=== PATIENT | male | born 1975 ===

== ENCOUNTER 2016-06-05 18:54 | Observation (INO) ==
--- NOTE | 2016-06-05 19:04 | Emergency Department Note ---
Disposition Clinical Impression: Alcoholic intoxication Qualifiers: Complication of substance-induced condition: uncomplicated Qualified Code(s): F10.120 - Alcohol abuse with intoxication, uncomplicated Disposition: Admitted As Inpatient Condition: Good Time of Disposition: 22:59 Altered Mental Status HPI - General Stated Complaint: Intoxication Time Seen by Provider: 06/05/16 19:00 Source: EMS Mode of arrival: EMS Limitations: altered mental status (ACUTE INTOXICATION) Nursing Notes Reviewed: Yes Vital Signs Reviewed: Yes - History of Present Illness HPI Narrative: Mr. Candelario Masters is a male was brought in via EMS for acute intoxication. He was reportedly picked up from [employer] restaurant passed out since 1600 today. EMS reports that no employee restaurants recognize him or know him. Reportedly has been drinking alcohol all day. EMS found him on the ground. GCS 12 [id number]. He is protecting his airway. Pupils are reactive but sluggish. No obvious signs of trauma. - Related Data Home Medications Medication Instructions Recorded Confirmed Unable To Obtain [Unable to Obtain] 06/05/16 06/05/16 Allergies Allergy/AdvReac Type Severity Reaction Status Date / Time Unable to Assess Allergy Unverified 06/05/16 19:27 Limitations: ROS unobtainable due to patients medical condition (acute intoxication) Past Medical History - Past Medical History Source: unable to obtain (no ID, Candelario Masters) Physical Exam - General Limitations: altered mental status General appearance: appears intoxicated, obtunded - Head Head exam: atraumatic, normocephalic, normal inspection - Eye Eye exam: Present: normal appearance, PERRL (sluggish), EOMI, other (ptergium left eye medial) - ENT ENT exam: normal exam, normal oropharynx, mucous membranes moist - Neck Neck exam: Present: normal inspection, full ROM, trachea midline - Chest Chest inspection: Present: normal inspection, symmetric chest wall rise - Respiratory Respiratory exam: Present: normal lung sounds bilaterally. Absent: respiratory distress, wheezes - Cardiovascular Cardiovascular exam: Present: regular rate, normal rhythm, normal heart sounds - Abdominal Exam Abdominal exam: Present: soft, Non-Tender, normal bowel sounds. Absent: tenderness, distention, guarding, rebound, rigidity - Expanded Neurological Exam Coma Scale Eye Opening: To Voice Coma Scale Motor Response: Localizes to Pain Coma Scale Verbal Response: Confused (some words sound like malay) Coma Scale Total: 12 - Skin Skin exam: Present: warm, dry, intact, normal color Course Course Narrative: Unidentified male presents via EMS for acute intoxication. He supposedly has been passed out since 1600 this afternoon likely from alcohol intoxication. He has no signs of obvious trauma. He is protecting his airway. GCS 12. Opens eyes to vocal command but does not move extremities spontaneous. Moves all 4 extremities. He is very somnolent, will awaken and then quickly doze off. Lungs are clear bilaterally. Heart is regular rate and rhythm. Eyes are equal round and reactive to light however are sluggish. Due to his intoxication will get a CT head and cervical spine along with basic labs, APAP, ASA, and EtOH. Plan to observe. - Reevaluation(s) Reevaluation #1: CT imaging does not reveal any acute fracture or intracranial abnormality. Chest x-ray does not reveal any infectious process. Bloodwork confirms acute alcoholic intoxication. Blood alcohol 445. He will likely need observation until he is sober. Toxic panel is negative for salicylates or acetaminophen. Urine is negative for any other drugs. clinical systems analyst at bedside. He denies any suicidal or homicidal ideations. Denies taking any medications on a regular basis. Denies any illicit drug use such as marijuana, cocaine, methanol , rubbing alcohol, antifreeze. He does not recall the events leading up to today. He denies any chest pain, shortness of breath, neck pain, headache. Denies any extremity pain. Laboratory Tests 06/05/16 06/05/16 06/05/16 19:09 19:09 19:27 WBC 8.3 RBC 5.44 Hgb 16.6 Hct 48.8 MCV 89.7 MCH 30.5 MCHC 34.0 RDW 13.1 Plt Count 320 MPV 11.0 Immature Gran % 0.4 Seg Neutrophils % 62.5 Lymphocytes % 30.9 Monocytes % 4.5 Eosinophils % 1.1 Basophils % 0.6 Neutrophils # 5.2 Lymphocytes # 2.6 Monocytes # 0.4 Eosinophils # 0.1 Basophils # 0.1 Sodium 142 Potassium 3.2 L Chloride 104 Carbon Dioxide 23 BUN 8 Creatinine 0.80 Est GFR ( Amer) > 60 Est GFR (Non-Af Amer) > 60 BUN/Creatinine Ratio 10 Glucose 135 H POC Glucose 132 H Calculated Osmolality 294 Calcium 8.6 Total Bilirubin 0.2 Direct Bilirubin 0.1 Indirect Bilirubin 0.1 AST 29 ALT 26 Alkaline Phosphatase 105 Serum Total Protein 7.9 Albumin 3.8 Globulin 4.1 H Albumin/Globulin Ratio 0.9 L Urine Color Urine Clarity Urine pH Ur Specific [place] Urine Protein Urine Glucose (UA) Urine Ketones Urine Blood Urine Nitrite Urine Bilirubin Urine Urobilinogen Ur Leukocyte Esterase Salicylates < 5.0 L Urine Opiates Screen Acetaminophen < 1.0 L Ur Barbiturates Screen Ur Phencyclidine Scrn Ur Amphetamines Screen U Benzodiazepines Scrn Urine Cocaine Screen U Marijuana (THC) Screen Ethyl Alcohol 445 H 06/05/16 06/05/16 21:10 21:10 WBC RBC Hgb Hct MCV MCH MCHC RDW Plt Count MPV Immature Gran % Seg Neutrophils % Lymphocytes % Monocytes % Eosinophils % Basophils % Neutrophils # Lymphocytes # Monocytes # Eosinophils # Basophils # Sodium Potassium Chloride Carbon Dioxide BUN Creatinine Est GFR ( Amer) Est GFR (Non-Af Amer) BUN/Creatinine Ratio Glucose POC Glucose Calculated Osmolality Calcium Total Bilirubin Direct Bilirubin Indirect Bilirubin AST ALT Alkaline Phosphatase Serum Total Protein Albumin Globulin Albumin/Globulin Ratio Urine Color Yellow Urine Clarity Clear Urine pH 6.0 Ur Specific [place] 1.011 Urine Protein Negative Urine Glucose (UA) Normal Urine Ketones Negative Urine Blood Negative Urine Nitrite Negative Urine Bilirubin Negative Urine Urobilinogen Normal Ur Leukocyte Esterase Negative Salicylates Urine Opiates Screen Negative Acetaminophen Ur Barbiturates Screen Negative Ur Phencyclidine Scrn Negative Ur Amphetamines Screen Negative U Benzodiazepines Scrn Negative Urine Cocaine Screen Negative U Marijuana (THC) Screen Negative Ethyl Alcohol Vital Signs Temperature 98.1 F 06/05/16 19:19 Pulse Rate 116 06/05/16 19:19 Respiratory Rate 18 06/05/16 19:19 Blood Pressure 130/93 06/05/16 19:19 O2 Sat by Pulse Oximetry 93 L 06/05/16 19:19 Temperature 98.1 F 06/05/16 19:19 Pulse Rate 109 06/05/16 21:21 Respiratory Rate 18 06/05/16 21:21 Blood Pressure 140/93 06/05/16 21:21 O2 Sat by Pulse Oximetry 92 L 06/05/16 21:21 Oxygen Delivery Oxygen Delivery Nasal Cannula Head CT 06/05/16 19:00 IMPRESSION: 1. No acute intracranial abnormality. D/ / Steve Nowak MD / Steve Nowak MD Interpreting Provider: Steve Nowak MD Cervical Spine CT 06/05/16 19:01 IMPRESSION: No acute abnormality of the cervical spine. D/ / Saurabh Del Castillo MD / Saurabh Del Castillo MD Interpreting Provider: Saurabh Del Castillo MD Chest X-Ray 06/05/16 19:04 IMPRESSION: 1. Bibasilar airspace disease favoring atelectasis rather than pneumonia. D/ / Steve Nowak MD / Steve Nowak MD Interpreting Provider: Steve Nowak MD Time: 22:57 Reevaluation #2: Patient resting comfortably in bed. Denies any complaints at this time. Respirations are unlabored and continues to maintain his airway. Time: 00:48 - Consultations Consultation #1: Spoke with on-call hospitalist ashok Fonseca to admit for observation for acute alcohol intoxication 445. Requests starting on D5NS 20 mEq K Time: 22:58 Vital Signs Temperature 98.1 F 06/05/16 19:19 Pulse Rate 116 06/05/16 19:19 Respiratory Rate 18 06/05/16 19:19 Blood Pressure 130/93 06/05/16 19:19 O2 Sat by Pulse Oximetry 93 L 06/05/16 19:19 Temperature 97.7 F 06/06/16 02:53 Pulse Rate 106 06/06/16 02:53 Respiratory Rate 18 06/06/16 02:53 Blood Pressure 101/63 06/06/16 02:53 O2 Sat by Pulse Oximetry 93 L 06/06/16 02:53 Oxygen Delivery Oxygen Delivery Nasal Cannula Altered Mental Status - Medical Records Medical records reviewed: Yes I reviewed the patient's medical records. - Lab Data Lab results reviewed: Yes I reviewed the patient's lab results. Result diagrams: 06/05/16 19:09 06/05/16 19:09 Lab Results 06/05/16 06/05/16 06/05/16 Range/Units 19:09 19:09 19:27 WBC 8.3 (4.3-11.1) K/mcL RBC 5.44 (4.19-5.50) M/mcL Hgb 16.6 (12.9-16.9) g/dL Hct 48.8 (37.5-50.1) % MCV 89.7 (83.0-100.0) fL MCH 30.5 (28.0-33.3) pg MCHC 34.0 (31.6-35.5) g/dL RDW 13.1 (11.5-14.5) % Plt Count 320 (140-400) K/mcL MPV 11.0 (9.4-12.4) fL Immature Gran % 0.4 (0-4) % Seg Neutrophils % 62.5 % Lymphocytes % 30.9 % Monocytes % 4.5 % Eosinophils % 1.1 % Basophils % 0.6 % Neutrophils # 5.2 (1.6-8.9) K/mcL Lymphocytes # 2.6 (0.6-4.6) K/mcL Monocytes # 0.4 (0.0-1.3) K/mcL Eosinophils # 0.1 (0.0-0.6) K/mcL Basophils # 0.1 (0.0-0.2) K/mcL Sodium 142 (136-145) mEq/L Potassium 3.2 L (3.5-4.5) mEq/L Chloride 104 (98-109) mEq/L Carbon Dioxide 23 (19-29) mEq/L BUN 8 (8-26) mg/dL Creatinine 0.80 (0.72-1.25) mg/dL Est GFR ( Amer) > 60 (> 60) Est GFR (Non-Af Amer) > 60 (> 60) BUN/Creatinine Ratio 10 (6-26) Glucose 135 H (70-99) mg/dL POC Glucose 132 H (58-89) Calculated Osmolality 294 (280-300) Calcium 8.6 (8.6-10.8) mg/dL Total Bilirubin 0.2 (0.2-1.2) mg/dL Direct Bilirubin 0.1 (0.0-0.5) mg/dL Indirect Bilirubin 0.1 (0.0-1.2) mg/dL AST 29 (5-34) Units/L ALT 26 (0-55) Units/L Alkaline Phosphatase 105 (38-126) Units/L Serum Total Protein 7.9 (6.0-8.3) g/dL Albumin 3.8 (3.5-5.0) g/dL Globulin 4.1 H (2.4-3.5) g/dL Albumin/Globulin Ratio 0.9 L (1.1-2.2) Urine Color (Yellow) Urine Clarity (Clear) Urine pH (5.0-8.0) pH Units Ur Specific [place] (1.010-1.025) Urine Protein (Neg-Trace) mg/dL Urine Glucose (UA) (Normal) mg/dL Urine Ketones (Negative) mg/dL Urine Blood (Negative) Urine Nitrite (Negative) Urine Bilirubin (Negative) Urine Urobilinogen (Normal) mg/dL Ur Leukocyte Esterase (Negative) Salicylates < 5.0 L (15-30) mg/dL Urine Opiates Screen (Vqbbef=491) ng/mL Acetaminophen < 1.0 L (10-30) mcg/mL Ur Barbiturates Screen (Enhzbs=473) ng/mL Ur Phencyclidine Scrn (Cutoff=25) ng/mL Ur Amphetamines Screen (Tqvoqj=4765) ng/mL U Benzodiazepines Scrn (Rusgjj=613) ng/mL Urine Cocaine Screen (Cutoff= 300) ng/mL U Marijuana (THC) Screen (Cutoff = 50) ng/mL Ethyl Alcohol 445 H (0-10) mg/dL 06/05/16 06/05/16 Range/Units 21:10 21:10 WBC (4.3-11.1) K/mcL RBC (4.19-5.50) M/mcL Hgb (12.9-16.9) g/dL Hct (37.5-50.1) % MCV (83.0-100.0) fL MCH (28.0-33.3) pg MCHC (31.6-35.5) g/dL RDW (11.5-14.5) % Plt Count (140-400) K/mcL MPV (9.4-12.4) fL Immature Gran % (0-4) % Seg Neutrophils % % Lymphocytes % % Monocytes % % Eosinophils % % Basophils % % Neutrophils # (1.6-8.9) K/mcL Lymphocytes # (0.6-4.6) K/mcL Monocytes # (0.0-1.3) K/mcL Eosinophils # (0.0-0.6) K/mcL Basophils # (0.0-0.2) K/mcL Sodium (136-145) mEq/L Potassium (3.5-4.5) mEq/L Chloride (98-109) mEq/L Carbon Dioxide (19-29) mEq/L BUN (8-26) mg/dL Creatinine (0.72-1.25) mg/dL Est GFR ( Amer) (> 60) Est GFR (Non-Af Amer) (> 60) BUN/Creatinine Ratio (6-26) Glucose (70-99) mg/dL POC Glucose (58-89) Calculated Osmolality (280-300) Calcium (8.6-10.8) mg/dL Total Bilirubin (0.2-1.2) mg/dL Direct Bilirubin (0.0-0.5) mg/dL Indirect Bilirubin (0.0-1.2) mg/dL AST (5-34) Units/L ALT (0-55) Units/L Alkaline Phosphatase (38-126) Units/L Serum Total Protein (6.0-8.3) g/dL Albumin (3.5-5.0) g/dL Globulin (2.4-3.5) g/dL Albumin/Globulin Ratio (1.1-2.2) Urine Color Yellow (Yellow) Urine Clarity Clear (Clear) Urine pH 6.0 (5.0-8.0) pH Units Ur Specific [place] 1.011 (1.010-1.025) Urine Protein Negative (Neg-Trace) mg/dL Urine Glucose (UA) Normal (Normal) mg/dL Urine Ketones Negative (Negative) mg/dL Urine Blood Negative (Negative) Urine Nitrite Negative (Negative) Urine Bilirubin Negative (Negative) Urine Urobilinogen Normal (Normal) mg/dL Ur Leukocyte Esterase Negative (Negative) Salicylates (15-30) mg/dL Urine Opiates Screen Negative (Jfleeg=461) ng/mL Acetaminophen (10-30) mcg/mL Ur Barbiturates Screen Negative (Fiocit=332) ng/mL Ur Phencyclidine Scrn Negative (Cutoff=25) ng/mL Ur Amphetamines Screen Negative (Kwkfdl=9923) ng/mL U Benzodiazepines Scrn Negative (Blrntn=699) ng/mL Urine Cocaine Screen Negative (Cutoff= 300) ng/mL U Marijuana (THC) Screen Negative (Cutoff = 50) ng/mL Ethyl Alcohol (0-10) mg/dL - Radiology Data Radiology results reviewed: Yes I reviewed the patient's radiology results. Head CT 06/05/16 19:00 IMPRESSION: 1. No acute intracranial abnormality. D/ / Steve Nowak MD / Steve Nowak MD Interpreting Provider: Steve Nowak MD Cervical Spine CT 06/05/16 19:01 IMPRESSION: No acute abnormality of the cervical spine. D/ / Saurabh Del Castillo MD / Saurabh Del Castillo MD Interpreting Provider: Saurabh Del Castillo MD Chest X-Ray 06/05/16 19:04 IMPRESSION: 1. Bibasilar airspace disease favoring atelectasis rather than pneumonia. D/ / Steve Nowak MD / Steve Nowak MD Interpreting Provider: Steve Nowak MD - EKG Data EKG attestation: Yes I reviewed and interpreted this EKG. EKG results narrative: EKG performed 1924 normal sinus rhythm 110 bpm, normal axis, Q waves in inferior leads, no ST elevations or depressions, T-wave inversions in inferior leads. Intervals are within normal limits OH interval 157 QRS 114 QT QTC 325 390. There is no old EKG for comparison due to his lack of identification. No acute STEMI. Attestation Statement - Attestation Attestation: For this encounter, I have reviewed the resident, PAINTER BOTTOM, or PA documentation, treatment plan, and medical decision making; and I have had face to face time with this patient. Candelario Masters brought in by EMS intoxicated. Patient was apparently at a local restaurant, drinking at the bar throughout the day. Patient fell from his bar stool and then EMS was called. Patient is unable to give a history regarding his symptoms. He denies coingestion with illicit drugs or other medications. Patient is unable to provide his name or his date. On initial evaluation the patient is speaking a combination of slurred Bengali and Faroese. An public address systems mechanic was used to try to get a better history without significant success. Patient denies suicidal ideation or homicidal ideation. Patient will be admitted to the hospital for further evaluation and care with a reevaluation when sober which will take close to [address] of the head was negative for acute intracranial hemorrhage or fracture.
[2016-06-05 19:14] LABS: Basophils # 0.1 K/mcL (0.0-0.2); Basophils % 0.6 %; Eosinophils # 0.1 K/mcL (0.0-0.6); Eosinophils % 1.1 %; Hematocrit 48.8 % (37.5-50.1); Hemoglobin 16.6 g/dL (12.9-16.9); Immature Granulocytes % 0.4 % (0-4); Lymphocytes # 2.6 K/mcL (0.6-4.6); Lymphocytes % 30.9 %; Mean Corpuscular Hemoglobin 30.5 pg (28.0-33.3); Mean Corpuscular Volume 89.7 fL (83.0-100.0); Monocytes # 0.4 K/mcL (0.0-1.3); Monocytes % 4.5 %; Neutrophils # 5.2 K/mcL (1.6-8.9); Platelet Count 320 K/mcL (140-400); Red Blood Count 5.44 M/mcL (4.19-5.50); Red Cell Distribution Width 13.1 % (11.5-14.5); Segmented Neutrophils % 62.5 %
[2016-06-05 19:28] LABS: Acetaminophen < 1.0 mcg/mL (10-30); Alanine Aminotransferase 26 Units/L (0-55); Albumin 3.8 g/dL (3.5-5.0); Albumin/Globulin Ratio 0.9 (1.1-2.2); Alkaline Phosphatase 105 Units/L (38-126); Aspartate Amino Transferase 29 Units/L (5-34); BUN/Creatinine Ratio 10 (6-26); Bilirubin,Direct 0.1 mg/dL (0.0-0.5); Bilirubin,Indirect 0.1 mg/dL (0.0-1.2); Bilirubin,Total 0.2 mg/dL (0.2-1.2); Blood Urea Nitrogen 8 mg/dL (8-26); Calcium 8.6 mg/dL (8.6-10.8); Carbon Dioxide 23 mEq/L (19-29); Chloride 104 mEq/L (98-109); Ethanol 445 mg/dL (0-10); Globulin 4.1 g/dL (2.4-3.5); Glucose 135 mg/dL (70-99); Osmolality,Calculated 294 (280-300); Potassium 3.2 mEq/L (3.5-4.5); Salicylate < 5.0 mg/dL (15-30); Sodium 142 mEq/L (136-145); Total Protein 7.9 g/dL (6.0-8.3); eGFR For African Americans > 60 (> 60); eGFR For Non-African Americans > 60 (> 60)
[2016-06-05 21:16] LABS: Bilirubin,Urine Negative (Negative); Blood,Urine Negative (Negative); Clarity,Urine Clear (Clear); Color,Urine Yellow (Yellow); Glucose,Urine (UA) Normal (Normal); Ketones,Urine Negative (Negative); Leukocyte Esterase,Urine Negative (Negative); Nitrite,Urine Negative (Negative); Protein,Urine Negative (Neg-Trace); Specific Gravity,Urine 1.011 (1.010-1.025); Urobilinogen,Urine Normal (Normal)
[2016-06-05 21:22] LABS: Amphetamine Screen,Urine Negative ng/mL (Cutoff=1000); Barbiturate Screen,Urine Negative ng/mL (Cutoff=200); Benzodiazepines Screen,Urine Negative ng/mL (Cutoff=200); Cannabinoid Screen,Urine Negative ng/mL (Cutoff = 50); Cocaine Screen,Urine Negative ng/mL (Cutoff= 300); Opiate Screen,Urine Negative ng/mL (Cutoff=300); Phencyclidine Screen,Urine Negative ng/mL (Cutoff=25)
[2016-06-06] MEDS: D5% in 0.9% NACL w KCl 20 MEQ/1,000 ML MLS IVC SCH ×2 (00:25→10:10)
[2016-06-06] MEDS ORDERED: Acetaminophen 325 MG TABLET PO PRN (01:43)
[2016-06-06] MEDS ORDERED: *HR* Morphine 2 MG/ML SYRINGE IVP PRN (05:50)
[2016-06-06] MEDS ORDERED: Naloxone 0.4 MG/ML INJ IVP PRN (05:50)
[2016-06-06] MEDS ORDERED: *HR* OxyCODONE Immed Rel 5 MG TABLET PO PRN (05:50)
[2016-06-06] MEDS ORDERED: 0.9 % Sodium Chloride w KCl 20 MEQ/1,000 ML MLS IVC SCH (06:00)
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
[2016-06-06] MEDS ORDERED: Famotidine 20 MG TABLET PO SCH (07:30)
[2016-06-06 10:27] LABS: INR 1.1; Prothrombin Time 11.5 Seconds (9.4-12.1)
[2016-06-06 10:29] LABS: Activated Partial Thrombo Time 26.9 Seconds (26.0-36.0); Magnesium 2.1 mg/dL (1.6-2.6); Potassium 3.6 mEq/L (3.5-4.5)
[2016-06-06 10:36] LABS: Chol/HDL Ratio 4.8 (0-4.9)
--- NOTE | 2016-06-06 11:35 | Discharge Summary ---
Date of Encounter: 06/06/16 Time of Encounter: 11:03 - Discharge Diagnosis (1) Alcoholic intoxication Priority: Primary Status: Acute Qualifiers: Qualified Code(s): F10.120 - Alcohol abuse with intoxication, uncomplicated (2) Syncope Priority: Primary Status: Acute Comments: secondary to alcohol intoxication Qualifiers: Qualified Code(s): T67.1XXA - Heat syncope, initial encounter (3) Hypokalemia Priority: Primary Status: Acute Comments: corrected - Discharge Medications Home Medications: No Known Home Drugs 06/06/16 [History] Allergies/Adverse Reactions: Allergies No Known Allergies Allergy (Verified 06/06/16 12:47) Procedures/tests Complete & Pending: Procedures Performed prior 72 hours Category Date Time Status ECG 12 lead ECG [ECG] AM 0600 Y 06/06/16 06:00 Ordered EV echocardiogram Routine Y 06/06/16 05:50 Ordered Date of admission: 06/05/16 23:18 Primary care physician: PCP NO - Patient Status Disposition: Home, Self-Care Condition: Good Functional capacity at discharge: independent ambulation Overall status at discharge: patient is progressing back to baseline - Discharge Instructions Instructions: Syncope (DC), Alcohol Intoxication (DC) Follow Up With: NO,PCP [Primary Care Provider] - Forms: ED Satisfaction Letter - Diet and Activity Activity: resume usual activities as tolerated Diet: regular diet Interval History: Pt has no complaints. He admits having a few drinks. He was jsut recently laid out of work and is worried about not finding another. Hospital course: Mr. Doreen Carrera is a 40 year old male, Slovenian speaker, who was recently laid off from his job and went to have some drinks at [facility] [employer]. [facility] and was brought to our ED by EMS. Wishes alcohol level was 445. He was admitted for a complete intoxication and received IV fluid hydration. Chest x-ray so by basilar atelectasis. EKG was unremarkable. Troponin was negative. CT head was negative. Cervical spine CT was negative. On my examination, patient was under oriented 3. He was ambulating and eating well. No complaints. She was advised to quit drinking alcohol. He verbalized understanding and agreed. - Time Spent with Patient Total time spent providing and/or coordinating discharge services: - Constitutional Vitals: Temp Pulse Resp BP Pulse Ox 97.7 F 106 18 101/63 93 L 06/06/16 02:53 06/06/16 02:53 06/06/16 02:53 06/06/16 02:53 06/06/16 02:53 General appearance: Present: cooperative, A&O X 3, pleasant, no acute distress, answers questions appropriately - Eye Eye exam: Present: PERRL, sclera anicteric - Neck Neck exam general surgery: Present: supple, trachea midline. Absent: lymphadenopathy
[2016-06-06 12:00] VITALS: BP 137/89
--- NOTE | 2016-06-07 08:19 | ECHO - Doppler Report ---
Echocardiogram Name: Lew Carrera Date of Study: 06/06/2016 Date: 1975 Ht: 69.0 in Medical Record#: [id number] Age: 40 Wt: 178.0 lb Gender: Male BSA: 1.97 Order #: [id number] Location: [facility] Room #: 3B35 Reading Physician: Manuel Mott MD, [facility] Supervisor Front: Anne Almeida Ordering Physician: Yann Treadwell MD Primary Physician: None Indications: Chest pain, Abnormal EKG Impressions: LVEF 55-60%. Moderately dilated left atrium. No pulmonary hypertension. No significant valvular dysfunction. Left Ventricular Wall Motion: Rest Echo Findings All wall segments showed normal motion. Findings: Study Quality * Technically adequate exam. Right Ventricle * Normal right ventricular structure and function. Right Atrium * Normal right atrial size. Aortic Valve * Trileaflet aortic valve with normal function. Interatrial Septum * No evidence of PFO by color Doppler. Aorta * Normally sized aortic root. Pericardium * The pericardium appears normal. Left Atrium * Moderately dilated left atrium. Pulmonic Valve * No pulmonic stenosis. * Mild pulmonic regurgitation. Tricuspid Valve * Trace tricuspid regurgitation. * No tricuspid stenosis. * Estimated RVSP is 22 mmHg. * Estimated RA pressure is 3-5 mmHg. * No pulmonary hypertension. Mitral Valve * Normal mitral valve structure. * No mitral stenosis. * Trace mitral regurgitation. ECG Findings * Sinus rhythm with BBB. Left Ventricle * Indeterminate diastolic function. * LVEF 55-60%. History Measurements: BP: 101/ 63 2D Normal Values RVIDd: 3.20 cm <2.7 cm IVSd: 1.20 cm 0.6 - 1.0 cm LVIDd: 4.10 cm 3.7 - 5.6 cm LVPWd: 1.20 cm 0.6 - 1.1 cm LVIDs: 2.30 cm 1.5 - 3.6 cm AO: 2.70 cm < 4.0 cm LA: 4.60 cm 2.0 - 4.0cm %FS: 43.90 cm >25 % LA volume: 57 Mitral Valve Peak E:.89 m/sec Peak A:.92 m/sec E/A Ratio:1 Peak E' Lat Xu:16.6 cm/s Peak E' Med Xu:8.87 cm/s Tricuspid Valve TV Regurg Peak Grad: 22.00mmHg TV Regurg Peak Xu: 2.33m/sec Updated by Manuel Mott MD, [facility] on 06/07/2016 8:08:46 AM electronically signed on 06/07/2016 8:13:55 AM with status of [employer]: 1=Normal, 2=Hypokinesis, 3=Akinesis, 4=Dyskinesis, 5=Aneurysmal, 6=Hyperkinetic, X=Not Visualized (Blank)=Missing
--- NOTE | 2016-06-08 09:45 | Electrocardiograph Report ---
[address] [place] [address] Test Date: 2016-06-06 Pat Name: Lew Carrera Department: 113 Room: 3B35 Gender: M Decision Unit Rn: : 1975 Requested By: Yann Treadwell Order Number: [id number] Reading MD: Manuel Mott MD Measurements Intervals [place] Rate: 85 P: 44 MT: 144 QRS: 47 QRSD: 113 T: 28 QT: 356 QTc: 398 Interpretive Statements SINUS RHYTHM PROBABLE INFERIOR MYOCARDIAL INFARCTION, PROBABLY OLD WITH POSTERIOR EXTENSION Electronically Signed On 06-08-2016 9:43:33 EST by Manuel Mott MD
--- NOTE | 2016-06-08 14:40 | Electrocardiograph Report ---
[place] [address] Test Date: 2016-06-05 Pat Name: Lew Carrera Department: 105 Room: 3B35 Gender: M Hvac Engineer: : 1975 Requested By: Tony Anne Order Number: [id number] Reading MD: Candelario Wray Measurements Intervals [place] Rate: 110 P: 89 DC: 157 QRS: 127 QRSD: 114 T: -11 QT: 325 QTc: 390 Interpretive Statements SINUS TACHYCARDIA POSSIBLE LEFT ATRIAL ENLARGEMENT LEFT POSTERIOR FASCICULAR BLOCK INFERIOR MYOCARDIAL INFARCTION, PROBABLY OLD Electronically Signed On 06-08-2016 14:39:07 EST by Candelario Wray
== END 2016-06-06 14:27 | disposition home or self-care (01) ==
LOC: EMEROO 18:54 → 3BNU 18:54 → EDBD 23:18 → 3BNU 23:21
PROVIDERS: ADMIT Pediatrics; ATTEND Nurse Practitioner Family